=== PATIENT | male | born 1950 | race Caucasian/White ===

== ENCOUNTER 2017-07-21 09:56 | Emergency (ER) | payer OTHER ==
--- NOTE | 2017-07-21 10:10 | ED ---
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 He apparently was complains some discomfort to his right eye. No trauma reported no fevers chills or sweats no nausea vomiting diarrhea or other symptoms. Lower extremity weakness he does feel generally weak. He states he's dominantly right-handed. No prior history of stroke - Related Data Home Medications: Previous Rx's Medication Instructions Recorded Dexamethasone 0.75 mg PO DAILY #12 tablet 08/07/15 Hydrocodone/Acetaminophen [Drury 1 each PO Q6HR PRN #30 tab 08/07/15 5-325] Orphenadrine [Norflex] 100 mg PO Q12H #10 tablet.er 08/07/15 Allergies/Adverse Reactions: Allergies Allergy/AdvReac Type Severity Reaction Status Date / Time No Known Allergies Allergy Verified 07/21/17 10:08 Review of Systems ROS Statement: Those systems with pertinent positive or pertinent negative responses have been documented in the HPI. ROS Other: All systems not noted in ROS Statement are negative. General Exam - General Exam Comments Initial Comments: This is a well-developed well-nourished awake alert oriented 3 Limitations: physical limitation General appearance: alert, anxious Head exam: Present: atraumatic, normocephalic, normal inspection Eye exam: Present: normal appearance, PERRL, EOMI. Absent: scleral icterus, conjunctival injection, periorbital swelling ENT exam: Present: other (Lesion noted on the right side of the tongue there is some evidence a right facial flattening compared to the left) Neck exam: Present: normal inspection, full ROM, other (No stridor JVD or bruits ). Absent: tenderness, meningismus, lymphadenopathy Respiratory exam: Present: normal lung sounds bilaterally. Absent: respiratory distress, wheezes, rales, rhonchi, stridor Cardiovascular Exam: Present: regular rate, normal rhythm, normal heart sounds. Absent: systolic murmur, diastolic murmur, rubs, gallop, clicks GI/Abdominal exam: Present: soft. Absent: distended, tenderness Rectal exam: Present: deferred Extremities exam: Present: normal inspection, normal capillary refill. Absent: full ROM, tenderness, pedal edema Back exam: Present: normal inspection, full ROM. Absent: tenderness Neurological exam: Present: alert, oriented X3, motor sensory deficit. Absent: CN II-XII intact Psychiatric exam: Present: normal affect, anxious Skin exam: Present: warm, dry, intact, normal color. Absent: rash Stroke MDM - Lab Data Result diagrams: 07/21/17 10:08 07/21/17 10:08 Lab Results 07/21/17 07/21/17 07/21/17 Range/Units 10:06 10:08 10:08 WBC 6.0 (3.8-10.6) k/uL RBC 4.64 (4.30-5.90) m/uL Hgb 13.9 (13.0-17.5) gm/dL Hct 40.4 (39.0-53.0) % MCV 87.1 (80.0-100.0) fL MCH 30.0 (25.0-35.0) pg MCHC 34.4 (31.0-37.0) g/dL RDW 13.4 (11.5-15.5) % Plt Count 209 (150-450) k/uL Neutrophils % 62 % Lymphocytes % 16 % Monocytes % 14 % Eosinophils % 4 % Basophils % 1 % Neutrophils # 3.7 (1.3-7.7) k/uL Lymphocytes # 1.0 (1.0-4.8) k/uL Monocytes # 0.8 (0-1.0) k/uL Eosinophils # 0.2 (0-0.7) k/uL Basophils # 0.0 (0-0.2) k/uL PT (9.0-12.0) sec INR (<1.2) APTT (22.0-30.0) sec Sodium (137-145) mmol/L Potassium (3.5-5.1) mmol/L Chloride (98-107) mmol/L Carbon Dioxide (22-30) mmol/L Anion Gap mmol/L BUN (9-20) mg/dL Creatinine (0.66-1.25) mg/dL Est GFR (CKD-EPI)AfAm (>60 ml/min/1.73 sqM) Est GFR (CKD-EPI)NonAf (>60 ml/min/1.73 sqM) Glucose (74-99) mg/dL POC Glucose (mg/dL) 110 H (75-99) mg/dL POC Glu Auger Machine Offbearer ID Calcium (8.4-10.2) mg/dL Total Bilirubin (0.2-1.3) mg/dL AST (17-59) U/L ALT (21-72) U/L Alkaline Phosphatase (38-126) U/L Total Creatine Kinase 133 (55-170) U/L CK-MB (CK-2) 2.3 (0.0-2.4) ng/mL CK-MB (CK-2) Rel Index 1.7 Troponin I <0.012 (0.000-0.034) ng/mL Total Protein (6.3-8.2) g/dL Albumin (3.5-5.0) g/dL 07/21/17 07/21/17 Range/Units 10:08 10:08 WBC (3.8-10.6) k/uL RBC (4.30-5.90) m/uL Hgb (13.0-17.5) gm/dL Hct (39.0-53.0) % MCV (80.0-100.0) fL MCH (25.0-35.0) pg MCHC (31.0-37.0) g/dL RDW (11.5-15.5) % Plt Count (150-450) k/uL Neutrophils % % Lymphocytes % % Monocytes % % Eosinophils % % Basophils % % Neutrophils # (1.3-7.7) k/uL Lymphocytes # (1.0-4.8) k/uL Monocytes # (0-1.0) k/uL Eosinophils # (0-0.7) k/uL Basophils # (0-0.2) k/uL PT 10.3 (9.0-12.0) sec INR 1.1 (<1.2) APTT 27.3 (22.0-30.0) sec Sodium 136 L (137-145) mmol/L Potassium 4.0 (3.5-5.1) mmol/L Chloride 99 (98-107) mmol/L Carbon Dioxide 24 (22-30) mmol/L Anion Gap 13 mmol/L BUN 12 (9-20) mg/dL Creatinine 0.78 (0.66-1.25) mg/dL Est GFR (CKD-EPI)AfAm >90 (>60 ml/min/1.73 sqM) Est GFR (CKD-EPI)NonAf >90 (>60 ml/min/1.73 sqM) Glucose 112 H (74-99) mg/dL POC Glucose (mg/dL) (75-99) mg/dL POC Glu Auger Machine Offbearer ID Calcium 9.0 (8.4-10.2) mg/dL Total Bilirubin 0.9 (0.2-1.3) mg/dL AST 37 (17-59) U/L ALT 36 (21-72) U/L Alkaline Phosphatase 104 (38-126) U/L Total Creatine Kinase (55-170) U/L CK-MB (CK-2) (0.0-2.4) ng/mL CK-MB (CK-2) Rel Index Troponin I (0.000-0.034) ng/mL Total Protein 7.2 (6.3-8.2) g/dL Albumin 4.3 (3.5-5.0) g/dL - NIH Stroke Scale 1a. Level of Consciousness: (0) alert 1b. LOC Questions: (0) answers correctly 1c. LOC Commands: (0) performs tasks correctly 2. Best Gaze: (0) normal 3. Visual: (0) no visual loss 4. Facial Palsy: (2) partial paralysis 5a. Motor Arm Left: (2) some gravity effort 5b. Motor Arm Right: (0) no drift 6a. Motor Leg Left: (0) no drift 6b. Motor Leg Right: (0) no drift 7. Limb Ataxia: (1) present 1 limb 8. Sensory: (0) normal 9. Best Language: (1) mild/moderate aphasia 10. Dysarthria: (1) mild/moderate dysarthria 11. Extinction/Inattention: (0) no abnormality - Medical Decision Making The patient did present with symptoms consistent with a CVA. He was a candidate for TPA. The case was discussed with the neuro interventional S and with the family members or present. Patient was given TPA after agreement by the family and patient. Patient will be transferred to [facility] for further evaluation. - EKG Data -: EKG Interpreted by Me EKG shows normal: sinus rhythm (Sinus rhythm rate 71 WA interval 134 QRS duration 90 QT since QTC of 14/445 low-voltage criteria for LVH.) Past Medical History Past Medical History: Cancer Additional Past Medical History / Comment(s): oral History of Any Multi-Drug Resistant Organisms: None Reported Additional Past Surgical History / Comment(s): oral surgery Past Psychological History: No Psychological Hx Reported Smoking Status: Current every day smoker Past Alcohol Use History: Daily - Past Family History Mother Family Medical History: Unable to Obtain Course Vital Signs 07/21/17 07/21/17 07/21/17 10:03 10:15 10:30 Temperature 96.7 F L Pulse Rate 73 76 76 Respiratory 16 20 18 Rate Blood Pressure 204/101 238/121 204/96 O2 Sat by Pulse 95 97 95 Oximetry 07/21/17 10:45 Temperature Pulse Rate 74 Respiratory 16 Rate Blood Pressure 178/102 O2 Sat by Pulse 95 Oximetry - Reevaluation(s) Reevaluation #1: 07/21/17 11:50 upon return from CAT scan no changes Reevaluation #2: 07/21/17 11:51 I did discuss the case with Dr. Boyd the patient is a TPA candidate. He'll be transferred to [facility]. I did discuss the case with Dr. Werner Critical Care Time Critical Care Time: Yes Critical Care Time: 39 minutes of critical care time which includes initial presentation with history physical labs x-rays reevaluation of the patient. Discussed with the family members on several occasions. Discussed with the neuro interventional is. Discussion with the emergency physician at [facility]. Documentation of the above. Transfer forms. Disposition Clinical Impression: Cerebrovascular accident Disposition: OTHER INSTITUTION NOT DEFINED Condition: Serious Is patient prescribed a controlled substance at d/c from ED?: No Referrals: None,Stated [Primary Care Provider] - 1-2 days - Out of Hospital Transfer - Req. Specs Out of Hospital Transfer - Requested Specifics: Other Emergency Center
[2017-07-21] MEDS ORDERED: RX INFO: IV CONTRAST WAS GIVEN 1 EACH MISC MISCELLANE PRN (10:16)
[2017-07-21 10:17] LABS: Basophils % (A) 1 %; Eosinophils # (A) 0.2 k/uL (0-0.7); Eosinophils % (A) 4 %; HCT 40.4 % (39.0-53.0); HGB 13.9 gm/dL (13.0-17.5); Lymphocytes % (A) 16 %; MCHC 34.4 g/dL (31.0-37.0); MCV 87.1 fL (80.0-100.0); Mean Platelet Volume 7.1; Monocytes # (A) 0.8 k/uL (0-1.0); Monocytes % (A) 14 %; Neutrophils # (A) 3.7 k/uL (1.3-7.7); Neutrophils % (A) 62 %; Platelet Count 209 k/uL (150-450); RBC 4.64 m/uL (4.30-5.90); RDW 13.4 % (11.5-15.5)
[2017-07-21 10:18] LABS: Glucose,Whole Blood 110 mg/dL (75-99)
--- NOTE | 2017-07-21 10:27 | CT ---
EXAMINATION TYPE: CT brain wo con for TPA DATE OF EXAM: None. COMPARISON: Previous study dated 07/21/2017 HISTORY: Patient code stroke: slurred speech and left side facial droop. CT DLP: 1106 mGycm Automated exposure control for dose reduction was used. FINDINGS: There are generalized changes of sulcal prominence and ventriculomegaly, compatible with atrophy. The re is diffuse periventricular white matter lucency, compatible chronic white matter ischemic change. There is a lucency in the external capsule on the right. This may represent an old lacunar infarct or may represent a dilated Virchow-Phil space. There is no acute focal lesion, mass effect or intracra nial blood. Visualized portions of the paranasal sinuses and mastoids are clear. The calvarium is intact. IMPRESSION: NO ACUTE INTRACRANIAL ABNORMALITY.
[2017-07-21 10:29] LABS: INR 1.1 (<1.2); Partial Thromboplastin Time 27.3 sec (22.0-30.0); Prothrombin Time 10.3 sec (9.0-12.0)
[2017-07-21] MEDS ORDERED: tPA (Alteplase) PER PHARMACY 1 EACH MISC MISCELLANE PRN (10:32)
[2017-07-21] MEDS ORDERED: ALTEPLASE BOLUS 6 MG in EMPTY SYRINGE 1 SYR IV STA (10:33)
[2017-07-21] MEDS ORDERED: ALTEPLASE 55 MG in EMPTY BAG 1 BAG IV STA (10:33)
[2017-07-21 10:34] LABS: ALT 36 U/L (21-72); AST 37 U/L (17-59); Albumin 4.3 g/dL (3.5-5.0); Alkaline Phosphatase 104 U/L (38-126); Anion Gap 13 mmol/L; Blood Urea Nitrogen 12 mg/dL (9-20); Carbon Dioxide 24 mmol/L (22-30); Chloride 99 mmol/L (98-107); Glucose 112 mg/dL (74-99); Sodium 136 mmol/L (137-145); Total Bilirubin 0.9 mg/dL (0.2-1.3); Total Protein 7.2 g/dL (6.3-8.2)
[2017-07-21 10:38] LABS: Creatine Kinase 133 U/L (55-170)
[2017-07-21] MEDS ORDERED: MORPHINE SULFATE 4 MG/ML SYRINGE IVP STA (10:43)
[2017-07-21 10:51] LABS: Creatine Kinase MB 2.3 ng/mL (0.0-2.4); Troponin I <0.012 ng/mL (0.000-0.034)
[2017-07-21] MEDS ORDERED: LABETALOL 5 MG/ML VIAL MDV IVP STA (11:14)
--- NOTE | 2017-07-21 11:56 | CT ---
EXAMINATION TYPE: CT angio head neck DATE OF EXAM: 07/21/2017 HISTORY: Patient complains of slurred speech. COMPARISON: NONE CT DLP: 503 mGycm. Automated Exposure Control for Dose Reduction was Utilized. TECHNIQUE: CTA scan of the head and neck is performed with IV Contrast, patient injected with 65 mL of Isovue 370, axial images are obtained, coronal and sagittal reformatted images are reviewed. Three -D reconstructed images are created on an independent workstation and reviewed. FINDINGS: There are emphysematous changes throughout the lungs. Prevertebral soft tissues are normal. The parapharyngeal, oropharyngeal and laryngeal soft tissues appear normal. The thyroid gland enhance s homogeneously. The major salivary glands are unremarkable. Vertebral body height and alignment are maintained. Atlantoaxial relationships are normal. There is d iffuse degenerative change throughout the cervical spine. There is diffuse uncovertebral joint diseas e. The facets are unremarkable. No definite protrusion is seen. There is a normal origin of the great vessels. There is mild atheromatous calcification involving the left carotid bulb. There is no significant stenosis on either side. The left vertebral artery is dominant. There is normal arborization of the middle cerebral arteries bilaterally. The anterior communicating arteries are patent. The posterior to indicating arteries cannot be visualized. There is no sizable a neurysm. IMPRESSION: 1. NO SIGNIFICANT STENOSIS IN EITHER CAROTID SYSTEM. 2. NORMAL CTA OF THE [place] OF [place].
--- NOTE | 2017-07-21 12:02 | ED ---
Medical Decision Making - Medical Decision Making Note to the original chart the symptoms were left-sided not right-sided please note the correction. This was in the original narrative. - Lab Data Result diagrams: 07/21/17 10:08 07/21/17 10:08 Lab Results 07/21/17 07/21/17 07/21/17 Range/Units 10:06 10:08 10:08 WBC 6.0 (3.8-10.6) k/uL RBC 4.64 (4.30-5.90) m/uL Hgb 13.9 (13.0-17.5) gm/dL Hct 40.4 (39.0-53.0) % MCV 87.1 (80.0-100.0) fL MCH 30.0 (25.0-35.0) pg MCHC 34.4 (31.0-37.0) g/dL RDW 13.4 (11.5-15.5) % Plt Count 209 (150-450) k/uL Neutrophils % 62 % Lymphocytes % 16 % Monocytes % 14 % Eosinophils % 4 % Basophils % 1 % Neutrophils # 3.7 (1.3-7.7) k/uL Lymphocytes # 1.0 (1.0-4.8) k/uL Monocytes # 0.8 (0-1.0) k/uL Eosinophils # 0.2 (0-0.7) k/uL Basophils # 0.0 (0-0.2) k/uL PT (9.0-12.0) sec INR (<1.2) APTT (22.0-30.0) sec Sodium (137-145) mmol/L Potassium (3.5-5.1) mmol/L Chloride (98-107) mmol/L Carbon Dioxide (22-30) mmol/L Anion Gap mmol/L BUN (9-20) mg/dL Creatinine (0.66-1.25) mg/dL Est GFR (CKD-EPI)AfAm (>60 ml/min/1.73 sqM) Est GFR (CKD-EPI)NonAf (>60 ml/min/1.73 sqM) Glucose (74-99) mg/dL POC Glucose (mg/dL) 110 H (75-99) mg/dL POC Glu Power Transmission Engineer ID Calcium (8.4-10.2) mg/dL Total Bilirubin (0.2-1.3) mg/dL AST (17-59) U/L ALT (21-72) U/L Alkaline Phosphatase (38-126) U/L Total Creatine Kinase 133 (55-170) U/L CK-MB (CK-2) 2.3 (0.0-2.4) ng/mL CK-MB (CK-2) Rel Index 1.7 Troponin I <0.012 (0.000-0.034) ng/mL Total Protein (6.3-8.2) g/dL Albumin (3.5-5.0) g/dL 07/21/17 07/21/17 Range/Units 10:08 10:08 WBC (3.8-10.6) k/uL RBC (4.30-5.90) m/uL Hgb (13.0-17.5) gm/dL Hct (39.0-53.0) % MCV (80.0-100.0) fL MCH (25.0-35.0) pg MCHC (31.0-37.0) g/dL RDW (11.5-15.5) % Plt Count (150-450) k/uL Neutrophils % % Lymphocytes % % Monocytes % % Eosinophils % % Basophils % % Neutrophils # (1.3-7.7) k/uL Lymphocytes # (1.0-4.8) k/uL Monocytes # (0-1.0) k/uL Eosinophils # (0-0.7) k/uL Basophils # (0-0.2) k/uL PT 10.3 (9.0-12.0) sec INR 1.1 (<1.2) APTT 27.3 (22.0-30.0) sec Sodium 136 L (137-145) mmol/L Potassium 4.0 (3.5-5.1) mmol/L Chloride 99 (98-107) mmol/L Carbon Dioxide 24 (22-30) mmol/L Anion Gap 13 mmol/L BUN 12 (9-20) mg/dL Creatinine 0.78 (0.66-1.25) mg/dL Est GFR (CKD-EPI)AfAm >90 (>60 ml/min/1.73 sqM) Est GFR (CKD-EPI)NonAf >90 (>60 ml/min/1.73 sqM) Glucose 112 H (74-99) mg/dL POC Glucose (mg/dL) (75-99) mg/dL POC Glu Power Transmission Engineer ID Calcium 9.0 (8.4-10.2) mg/dL Total Bilirubin 0.9 (0.2-1.3) mg/dL AST 37 (17-59) U/L ALT 36 (21-72) U/L Alkaline Phosphatase 104 (38-126) U/L Total Creatine Kinase (55-170) U/L CK-MB (CK-2) (0.0-2.4) ng/mL CK-MB (CK-2) Rel Index Troponin I (0.000-0.034) ng/mL Total Protein 7.2 (6.3-8.2) g/dL Albumin 4.3 (3.5-5.0) g/dL Disposition Clinical Impression: Cerebrovascular accident Disposition: OTHER INSTITUTION NOT DEFINED Condition: Serious Referrals: None,Stated [Primary Care Provider] - 1-2 days - Out of Hospital Transfer - Req. Specs Out of Hospital Transfer - Requested Specifics: Other Emergency Center
[2017-07-21 12:17] VITALS: RESP 18
[2017-07-21 12:21] VITALS: BP 167/87; PULSE 71; TEMP 97.9
== END 2017-07-21 12:42 | disposition other institution (70) ==
LOC: EC 09:56
DX: I63.9 Cerebral infarction, unspecified (principal); F17.200 Nicotine dependence, unspecified, uncomplicated; Z85.819 Personal history of malignant neoplasm of unspecified site of lip, oral cavity, and pharynx
CPT/HCPCS: 99291 ×2; 37195 ×2; 96375 ×2; 96374; 36415; 93005; 80053; 82550; 82553; 84484; 85025; 85610; 85730; 70496; 70450; 70498; J2997; J2270; Q9967

== ENCOUNTER 2017-08-16 19:27 | Emergency (ER) | payer OTHER ==
[2017-08-16] MEDS ORDERED: SODIUM CHLORIDE 0.9% 500 ML IV STA (19:55)
--- NOTE | 2017-08-16 20:03 | ED ---
Dizziness HPI - General Chief Complaint: Dizziness Stated Complaint: Dizziness Time Seen by Provider: 08/16/17 19:38 Source: patient Mode of arrival: wheelchair Limitations: no limitations - History of Present Illness Initial Comments: Patient is a 66-year-old male presenting for dizziness. He states that he has a history of a CVA on Mother's Day and since that time, he is been having lingering dizziness. However over the last couple days, he says it is getting worse but denies any focal weakness. He denies any nausea or vomiting but states that he has had shortness of breath as well as some mild diarrhea. However, he denies any chest pain. During this initial CVA, he states that he was transferred to [facility] where he had surgery on the right side of his neck for a large blood vessel in that he was scheduled for a surgery on the left side next month. - Related Data Home Medications Medication Instructions Recorded Confirmed Aspirin 81 mg PO DAILY 08/16/17 08/16/17 Atorvastatin [Lipitor] 10 mg PO HS 08/16/17 08/16/17 Clopidogrel [Plavix] 75 mg PO DAILY 08/16/17 08/16/17 Lisinopril 40 mg PO DAILY 08/16/17 08/16/17 Allergies Allergy/AdvReac Type Severity Reaction Status Date / Time No Known Allergies Allergy Verified 08/16/17 19:59 Review of Systems ROS Statement: Those systems with pertinent positive or pertinent negative responses have been documented in the HPI. Constitutional: Negative for chills, fatigue and fever. HENT: Negative for congestion. Respiratory: Negative for chest tightness, and wheezing. Negative for cough. Positive for shortness of breath Cardiovascular: Negative for chest pain and palpitations. Gastrointestinal: Negative for abdominal pain. Negative for abdominal distention , nausea and vomiting. Positive for diarrhea, Genitourinary: Negative for dysuria. Musculoskeletal: Negative for back pain, neck pain and neck stiffness. Skin: Negative for color change. Neurological: Negative for , speech difficulty, weakness. Positive for dizziness and light-headedness. Psychiatric/Behavioral: Negative for agitation and confusion. The patient is not nervous/anxious. ROS Other: All systems not noted in ROS Statement are negative. Past Medical History Past Medical History: Cancer, CVA/TIA Additional Past Medical History / Comment(s): oral History of Any Multi-Drug Resistant Organisms: None Reported Additional Past Surgical History / Comment(s): oral surgery Past Psychological History: No Psychological Hx Reported Smoking Status: Current every day smoker Past Alcohol Use History: Daily - Past Family History Mother Family Medical History: Unable to Obtain General Exam - General Exam Comments Initial Comments: Constitutional: Pt is oriented to person, place, and time. Pt appears well- developed and well-nourished. No distress. HENT: Head: Normocephalic and atraumatic. Eyes: EOM are normal. No nystagmus Neck: Normal range of motion. Neck supple. Cardiovascular: Normal rate, regular rhythm, S1 normal, S2 normal and normal heart sounds. Exam reveals no gallop and no friction rub. No murmur heard. Pulmonary/Chest: Effort normal and breath sounds normal. No tachypnea and no bradypnea. No respiratory distress. No wheezes or rales noted. Abdominal: Soft. Bowel sounds are normal. Pt exhibits no shifting dullness, no distension, no pulsatile liver, no fluid wave, no abdominal bruit and no ascites. There is no tenderness. There is no rigidity, no rebound, no guarding, no tenderness at McBurney's point and negative Raymundo's sign. Musculoskeletal: Normal range of motion. Neurological: Pt is alert and oriented to person, place, and time. No cranial nerve deficit. No extremity weakness Skin: Skin is warm and dry. No rash noted. Pt is not diaphoretic. No erythema. No pallor. Psychiatric: Pt has a normal mood and affect. Pt behavior is normal. Thought content normal. Limitations: no limitations Course Vital Signs 08/16/17 08/16/17 08/16/17 19:32 20:36 21:36 Temperature 97.9 F Pulse Rate 85 81 77 Pulse Rate [ Left Sitting] Pulse Rate [ Left Standing] Pulse Rate [ Left Supine] Respiratory 16 20 18 Rate Blood Pressure 146/78 150/70 151/71 Blood Pressure [Right Arm Sitting] Blood Pressure [Right Arm Standing] Blood Pressure [Right Arm Supine] O2 Sat by Pulse 98 98 98 Oximetry 08/16/17 08/16/17 08/16/17 21:45 21:52 22:00 Temperature 97.5 F L Pulse Rate 76 75 Pulse Rate [ 77 Left Sitting] Pulse Rate [ 84 Left Standing] Pulse Rate [ 72 Left Supine] Respiratory 18 20 Rate Blood Pressure 158/75 155/71 Blood Pressure 152/72 [Right Arm Sitting] Blood Pressure 155/77 [Right Arm Standing] Blood Pressure 151/68 [Right Arm Supine] O2 Sat by Pulse 98 98 Oximetry EKG Findings - EKG Comments: EKG Findings:: EKG performed at 19:42 showed significant artifact but did show sinus rhythm of 78 bpm, WI interval 124, QRS 92, QTC 435. EKG performed at 2220 also showed significant artifact which showed a rate of 72 bpm, WI interval 138, QRS duration 90, QTC 440. Medical Decision Making - Medical Decision Making Laboratory studies show that hemoglobin was stable and electrolytes were relatively within normal limits. EKG showed no significant arrhythmias and troponin was negative. CTA of the head and neck was performed and showed also no evidence of acute pathology. However extensive discussion was had with the patient and it was felt that the patient should admitted to the hospital for continued neurologic evaluation.. Additionally, could choke was not initiated because the patient was not in that timeframe. Discussion was had with the patient as to whether he should stay here at the hospital at [place] or transferred to [place] and patient requested to be transferred to [place] via EMS for continuity of care. - Lab Data Result diagrams: 08/16/17 19:48 08/16/17 19:48 Lab Results 08/16/17 08/16/17 08/16/17 Range/Units 19:48 19:48 19:48 WBC 8.2 (3.8-10.6) k/uL RBC 4.61 (4.30-5.90) m/uL Hgb 13.6 (13.0-17.5) gm/dL Hct 40.7 (39.0-53.0) % MCV 88.2 (80.0-100.0) fL MCH 29.6 (25.0-35.0) pg MCHC 33.5 (31.0-37.0) g/dL RDW 13.3 (11.5-15.5) % Plt Count 253 (150-450) k/uL Neutrophils % 58 % Lymphocytes % 23 % Monocytes % 10 % Eosinophils % 7 % Basophils % 1 % Neutrophils # 4.8 (1.3-7.7) k/uL Lymphocytes # 1.9 (1.0-4.8) k/uL Monocytes # 0.8 (0-1.0) k/uL Eosinophils # 0.6 (0-0.7) k/uL Basophils # 0.1 (0-0.2) k/uL PT (9.0-12.0) sec INR (<1.2) APTT (22.0-30.0) sec Sodium 136 L (137-145) mmol/L Potassium 4.6 (3.5-5.1) mmol/L Chloride 97 L (98-107) mmol/L Carbon Dioxide 27 (22-30) mmol/L Anion Gap 12 mmol/L BUN 15 (9-20) mg/dL Creatinine 0.85 (0.66-1.25) mg/dL Est GFR (CKD-EPI)AfAm >90 (>60 ml/min/1.73 sqM) Est GFR (CKD-EPI)NonAf >90 (>60 ml/min/1.73 sqM) Glucose 82 (74-99) mg/dL Calcium 9.8 (8.4-10.2) mg/dL Magnesium 1.9 (1.6-2.3) mg/dL Troponin I <0.012 (0.000-0.034) ng/mL 08/16/17 Range/Units 19:48 WBC (3.8-10.6) k/uL RBC (4.30-5.90) m/uL Hgb (13.0-17.5) gm/dL Hct (39.0-53.0) % MCV (80.0-100.0) fL MCH (25.0-35.0) pg MCHC (31.0-37.0) g/dL RDW (11.5-15.5) % Plt Count (150-450) k/uL Neutrophils % % Lymphocytes % % Monocytes % % Eosinophils % % Basophils % % Neutrophils # (1.3-7.7) k/uL Lymphocytes # (1.0-4.8) k/uL Monocytes # (0-1.0) k/uL Eosinophils # (0-0.7) k/uL Basophils # (0-0.2) k/uL PT 10.4 (9.0-12.0) sec INR 1.1 (<1.2) APTT 25.1 (22.0-30.0) sec Sodium (137-145) mmol/L Potassium (3.5-5.1) mmol/L Chloride (98-107) mmol/L Carbon Dioxide (22-30) mmol/L Anion Gap mmol/L BUN (9-20) mg/dL Creatinine (0.66-1.25) mg/dL Est GFR (CKD-EPI)AfAm (>60 ml/min/1.73 sqM) Est GFR (CKD-EPI)NonAf (>60 ml/min/1.73 sqM) Glucose (74-99) mg/dL Calcium (8.4-10.2) mg/dL Magnesium (1.6-2.3) mg/dL Troponin I (0.000-0.034) ng/mL Disposition Clinical Impression: Vertigo Disposition: OTHER INSTITUTION NOT DEFINED Condition: Good Instructions: Dizziness (ED) Referrals: Yousuf Tang DO [Doctor of Osteopathic Medicine] - 1-2 days - Out of Hospital Transfer - Req. Specs Out of Hospital Transfer - Requested Specifics: Other Emergency Center ([facility])
[2017-08-16 20:10] LABS: Basophils # (A) 0.1 k/uL (0-0.2); Basophils % (A) 1 %; Eosinophils # (A) 0.6 k/uL (0-0.7); Eosinophils % (A) 7 %; HCT 40.7 % (39.0-53.0); HGB 13.6 gm/dL (13.0-17.5); Lymphocytes # (A) 1.9 k/uL (1.0-4.8); Lymphocytes % (A) 23 %; MCH 29.6 pg (25.0-35.0); MCHC 33.5 g/dL (31.0-37.0); MCV 88.2 fL (80.0-100.0); Mean Platelet Volume 6.5; Monocytes # (A) 0.8 k/uL (0-1.0); Monocytes % (A) 10 %; Neutrophils # (A) 4.8 k/uL (1.3-7.7); Neutrophils % (A) 58 %; Platelet Count 253 k/uL (150-450); RBC 4.61 m/uL (4.30-5.90); RDW 13.3 % (11.5-15.5); WBC 8.2 k/uL (3.8-10.6)
[2017-08-16 20:19] LABS: Anion Gap 12 mmol/L; Blood Urea Nitrogen 15 mg/dL (9-20); Calcium 9.8 mg/dL (8.4-10.2); Carbon Dioxide 27 mmol/L (22-30); Chloride 97 mmol/L (98-107); Glucose 82 mg/dL (74-99); Magnesium 1.9 mg/dL (1.6-2.3); Potassium 4.6 mmol/L (3.5-5.1); Sodium 136 mmol/L (137-145)
[2017-08-16 20:40] LABS: INR 1.1 (<1.2); Partial Thromboplastin Time 25.1 sec (22.0-30.0); Prothrombin Time 10.4 sec (9.0-12.0)
--- NOTE | 2017-08-16 21:12 | CT ---
EXAMINATION TYPE: CT angio head neck DATE OF EXAM: 08/16/2017 HISTORY: Dizziness. History of stroke. COMPARISON: NONE CT DLP: 1330.4 mGycm. Automated Exposure Control for Dose Reduction was Utilized. TECHNIQUE: CTA scan of the neck is performed with IV Contrast, patient injected with 65ml mL of Isov ue 370, axial images are obtained, coronal and sagittal reformatted images are reviewed. Three-D lito nstructed images are created on an independent workstation and reviewed. FINDINGS: Thoracic aorta is atheromatous. There is normal branching pattern of the great vessels on the aortic arch. There is arterial flow in both vertebral arteries. There is arterial flow in the common interna l and external carotid arteries bilaterally. There are is apparent old right carotid endarterectomy. There is probably old left carotid artery arterectomy. The basilar artery fills mostly from the left vertebral artery. There is arterial flow in the anterior middle and posterior cerebral arteries. There is arterial flow in the vertebrobasilar artery system. There is patency of the right posterior communicating artery. There is no mass effect. There is normal contrast opacification of the venous sinuses. I see no evide nce of hemodynamically significant stenosis in the carotid arteries of the neck and the intracranial arterial circulation. IMPRESSION: Previous surgery. No evidence of hemodynamically significant stenosis. Negative CT angiogram of the b rain. No evidence of hemodynamically significant stenosis in the neck.
[2017-08-16] MEDS ORDERED: ASPIRIN 81 MG PO STA (21:38)
[2017-08-16 23:19] VITALS: BP 146/78; PULSE 78; RESP 18; TEMP 98
== END 2017-08-16 23:22 | disposition short-term general hospital (02) ==
LOC: EC 19:27
DX: R42 Dizziness and giddiness (principal); R06.02 Shortness of breath; R19.7 Diarrhea, unspecified; F17.200 Nicotine dependence, unspecified, uncomplicated; Z79.02 Long term (current) use of antithrombotics/antiplatelets; Z79.82 Long term (current) use of aspirin; Z79.899 Other long term (current) drug therapy; Z86.73 Personal history of transient ischemic attack (TIA), and cerebral infarction without residual deficits; Z85.819 Personal history of malignant neoplasm of unspecified site of lip, oral cavity, and pharynx; Z98.890 Other specified postprocedural states
CPT/HCPCS: 36415; 93005; 80048; 83735; 84484; 85025; 85610; 85730; 70496; 70498; 99285; 96360; 96361; Q9967

== ENCOUNTER → 2018-05-24 | Outpatient (CLI) | payer OTHER ==
--- NOTE | 2018-05-27 10:32 | PE ---
Nuclear medicine PET/CT HISTORY: Head and neck, oral carcinoma, subsequent Patient received 12.1 mCi F-18 FDG intravenously in delayed scanning was performed from the skull bas e to the mid thighs. Small [id number] imaging performed through the head and neck. Localization an d attenuation correction CT scan was also performed. Correlation to CT angiogram of the head and neck 08/16/2017 Head and neck: Uptake along the tongue thought to be physiologic, better seen on small [id number] images. No suspicious hypermetabolic uptake. On whole-body imaging mild asymmetry noted along the lef t aspect of the tongue, posterior aspect of the tongue to the right of midline, discordant findings s uggest physiologic uptake. There is uptake seen along the soft palate which is again felt likely to b e physiologic. There is no evident adenopathy. Postop changes are noted at the level of the floor the mouth. Metallic densities are also noted along the right neck. There is no evident lung mass. Uptake along the esophagus felt likely to be physiologic extending int o the stomach. No suspicious hypermetabolic uptake within the chest. There are some coronary artery c alcifications. Abdomen pelvis: No suspicious hypermetabolic uptake. No retroperitoneal adenopathy, no evident liver mass. Urinary bladder shows a thickened wall possibly due to outlet obstruction. Postop changes are n oted status post femorofemoral bypass. Osseous structures are within normal limits. IMPRESSION: Oral uptake as described. Likely to be physiologic. Postop changes. Correlate with direct visualization.
== END | disposition home or self-care (01) ==
LOC: RADPETMAIN 10:01
PROVIDERS: ATTEND Otolaryngology
DX: C04.0 Malignant neoplasm of anterior floor of mouth (principal); Z98.890 Other specified postprocedural states
CPT/HCPCS: 78815; A9552

== ENCOUNTER → 2020-11-18 | Outpatient (CLI) | payer OTHER ==
--- NOTE | 2020-11-18 13:09 | PE ---
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 TECHNIQUE: Following the intravenous administration of 10.23 mCi of F-18 FDG, whole body images are performed from the skull base to the midthigh. Images are reviewed on the computer in the coronal, a xial, and sagittal planes. Reconstructed rotating images are created on independent workstation and reviewed on the computer. A localization and attenuation correction CT is performed in conjunction with the PET scan. Dedicated PET/CT imaging of the neck also performed. Blood glucose level equals 12 2. SCAN: Subsequent Scan FINDINGS: SKULL BASE AND NECK: Surgical changes from right-sided neck dissection redemonstrated. No new areas of abnormal hypermetabolic uptake. CHEST, MEDIASTINUM, AND HILAR REGION: No new areas of abnormal hypermetabolic uptake. ABDOMEN AND PELVIS: Diminished bowel uptake current study. Normal excretion into the bladder. No new areas of abnormal hypermetabolic uptake. OSSEOUS STRUCTURES: No new areas of abnormal hypermetabolic uptake. OTHER CT: Mild to moderate calcified plaque at the left carotid bulb redemonstrated. Mild to moderate underlying emphysematous change is again seen. Mild coronary artery calcifications redemonstrated. S mall degree of subareolar gynecomastia again seen. Moderate calcified plaque of the aorta extends into branch vessels. There is bifemoral graft redemons trated. Facet arthropathy lower lumbar spine. IMPRESSION: No suspicious new hypermetabolic uptake to suggest recurrent active neoplasm.
== END | disposition home or self-care (01) ==
LOC: RADPETMAIN 08:23
PROVIDERS: ATTEND Internal Medicine Hematology & Oncology
DX: C76.0 Malignant neoplasm of head, face and neck (principal)
CPT/HCPCS: 78815; A9552

== ENCOUNTER → 2021-11-17 | Outpatient (CLI) | payer OTHER ==
--- NOTE | 2021-11-19 11:13 | PE ---
EXAMINATION TYPE: PET CT fusion skull to thigh DATE OF EXAM: 11/17/2021 CLINICAL INDICATION:Male, 70 years old with history of C760; TECHNIQUE: Following the intravenous administration of 11.5 mCi of F-18 FDG, whole body images are performed from the skull base to the midthigh. Images are reviewed on the computer in the coronal, a xial, and sagittal planes. Reconstructed rotating images are created on independent workstation and reviewed on the computer. A non-contrast CT is performed in conjunction with the PET scan. Glucose le daniella 103 mg/dL. COMPARISON: CT 08/16/2017, PET/CT 11/18/2020 and 05/24/2018. FINDINGS: Mediastinal SUV mean is 1.5. Hepatic parenchyma SUV mean is 1.9. SKULL BASE AND NECK: No suspicious FDG activity. Post surgical changes to the neck mild pronounced o n the right without evidence of recurrent mass or lymphadenopathy. CHEST, MEDIASTINUM, AND HILAR REGION: No suspicious FDG activity. ABDOMEN AND PELVIS: No suspicious FDG activity. OSSEOUS STRUCTURES: No suspicious FDG activity. OTHER CT: Atherosclerotic ossifications at the carotid bifurcations throughout the arterial vasculature and the coronary arteries. Femoral to femoral artery bypass graft is present. Postsurgical clips changes ant erior left thigh. IMPRESSION: No suspicious hypermetabolic uptake to suggest new or recurrent active neoplasm.
== END | disposition home or self-care (01) ==
LOC: RADPETMAIN 08:18
DX: C76.0 Malignant neoplasm of head, face and neck (principal)
CPT/HCPCS: 78815; A9552